=== PATIENT | female | born 1985 | race Caucasian/White ===

== ENCOUNTER 2018-05-18 00:34 | Inpatient (IN) | payer OTHER ==
[~2018-05-18] VITALS: Ht 162.6 cm; Wt 84.4 kg
[2018-05-18] MEDS ORDERED: PRENATAL TABLE1 EAC1 PO (01:04)
[2018-05-20] MEDS ORDERED: DOCUSATE SODIU100 MG PO (19:30)
[2018-05-20] MEDS ORDERED: PREPLUS CA-FE1 EACH PO (19:30)
== END 2018-05-20 19:37 | disposition home or self-care (01) | DRG 775 ==
LOC: LDR 00:34 → OB/GYN 00:34
PROC: 10E0XZZ Delivery of Products of Conception, External Approach (ICD-10-PCS; principal; 2018-05-18)
PROC: 4A1HXCZ Monitoring of Products of Conception, Cardiac Rate, External Approach (ICD-10-PCS; 2018-05-18)
DX: O80 Encounter for full-term uncomplicated delivery (principal); Z3A.39 39 weeks gestation of pregnancy; Z37.0 Single live birth